=== PATIENT | male | born 1975 | race Caucasian/White ===

== ENCOUNTER 2019-05-07 13:21 | Observation (INO) | payer OTHER ==
[~2019-05-07] VITALS: Ht 182.9 cm; Wt 90.7 kg
[~2019-05-07 13:21] MED LIST: ALPRAZOLAM; NORCO 5-325 TA1 EACH PO
[2019-05-07 13:32] VITALS: BP 106/107
[2019-05-07] MEDS ORDERED: NOHOMEMEDICATIONS (14:05)
[2019-05-07 14:07] LABS: CALCIUM 9.3 mg/dL (8.5-10.1); POTASSIUM 3.6 mmol/L (3.5-5.1)
[2019-05-07 14:09] LABS: ABSOLUTE EOSINOPHILS 0.5 thou/uL (0.0-0.7); ABSOLUTE LYMPHOCYTES 1.7 thou/uL (0.8-5.3); ABSOLUTE MONOCYTES 0.5 thou/uL (0.0-1.2); ABSOLUTE NEUTROPHILS 4.2 thou/uL (1.6-8.1); BASOPHILS 0.7 %; EOSINOPHILS 6.8 %; HEMATOCRIT 49.9 % (42.0-52.0); HEMOGLOBIN 17.5 gm/dL (14.0-18.0); LYMPHOCYTES 24.8 %; MCH 30.5 pg (26.0-34.0); MCV 87.1 fL (80.0-100.0); MONOCYTES 7.4 %; MPV 8.6 fl. (7.2-11.1); NUCLEATED RBCS 0 /100WBC; PLATELET COUNT* 162 thou/uL (150-400); POLYS 60.3 %; RBC 5.72 mil/uL (4.50-6.00); RDW-CV 13.6 % (10.5-14.5); WBC 6.9 thou/uL (4.0-11.0)
[2019-05-07 14:11] LABS: ALBUMIN 3.9 g/dL (3.4-5.0); TOTAL BILIRUBIN 0.7 mg/dL (<0.1-1.0); TOTAL PROTEIN 7.5 g/dL (6.4-8.2)
[2019-05-07] MEDS ORDERED: NORCO 5-325 TA1 EAC1 PO (15:41)
[2019-05-07] MEDS ORDERED: ONDANSETRON HCL4 M2 PO (15:41)
[2019-05-07] MEDS ORDERED: IBU800 MG PO (15:41)
[2019-05-07] MEDS ORDERED: FLOMAX0.4 MG PO (15:41)
[2019-05-07 16:06] LABS: URINE BILIRUBIN NEGATIVE (Negative); URINE BLOOD 3+ (Negative); URINE CLARITY CLEAR; URINE COLOR YELLOW; URINE GLUCOSE-RANDOM 1+ (Negative); URINE KETONES NEGATIVE (Negative); URINE LEUKOCYTES-REFLEX NEGATIVE (Negative); URINE NITRITE-REFLEX NEGATIVE (Negative); URINE PROTEIN NEGATIVE (Negative); URINE UROBILINOGEN 0.2 E.U./dl (0.2-1.0)
[2019-05-07 16:15] LABS: SQUAMOUS 0-3 Few /LPF (0-3); URINE RBC >20 Many /HPF (0-2); URINE WBC-REFLEX 0-5 Rare /HPF (0-5)
[2019-05-07 16:16] LABS: CASTS None Seen /LPF (None Seen); CRYSTALS None Seen /LPF (None Seen); MUCUS >6 Heavy strn/LPF (None Seen)
[2019-05-07] MEDS ORDERED: CIPRO500 MG PO (16:19)
[2019-05-07 17:26] LABS: AMP/METHAMP POSITIVE (Negative); BARBITURATES Negative (Negative); BENZODIAZEPINES Negative (Negative); COCAINE Negative (Negative); METHADONE Negative (Negative); OPIATES Negative (Negative); PCP Negative (Negative); THC Negative (Negative)
[2019-05-07 18:28] VITALS: BP 120/76
[2019-05-07 18:47] VITALS: BP 159/101
[2019-05-07 20:00] VITALS: BP 119/76
[2019-05-08 07:49] VITALS: BP 137/59
[2019-05-08 08:36] LABS: CALCIUM 8.4 mg/dL (8.5-10.1); CREATININE 1.2 mg/dL (0.6-1.3); MAGNESIUM 1.8 mg/dL (1.8-2.4); POTASSIUM 4.2 mmol/L (3.5-5.1)
[2019-05-08 12:12] VITALS: BP 137/59
[2019-05-08] MEDS ORDERED: FLOMAX0.4 MG PO (15:05)
[2019-05-09 02:10] LABS: GLYCOHEMOGLOBIN (HGB A1C) 5.3 % (4.8-5.6)
== END 2019-05-08 15:48 | disposition home or self-care (01) ==
LOC: M.ERS 13:21 → M.TBA-ER 17:03 → M.ORTHSURG 17:03
PROVIDERS: Internal Medicine; Nurse Practitioner Family; ADMIT Internal Medicine
DX: N13.2 Hydronephrosis with renal and ureteral calculous obstruction (principal); R11.2 Nausea with vomiting, unspecified; E86.9 Volume depletion, unspecified; R73.9 Hyperglycemia, unspecified; R10.9 Unspecified abdominal pain; R31.29 Other microscopic hematuria; Z88.0 Allergy status to penicillin; Z79.899 Other long term (current) drug therapy

== ENCOUNTER 2019-12-16 22:04 | Emergency (ER) | payer OTHER ==
[~2019-12-16] VITALS: Ht 182.9 cm; Wt 88.5 kg
[~2019-12-16 22:04] MED LIST changes: +CIPRO500 MG PO; +FLOMAX0.4 MG PO; +IBU800 MG PO; +NOHOMEMEDICATIONS; +NORCO 5-325 TA1 EAC1 PO; +ONDANSETRON HCL4 M2 PO
[2019-12-16 22:47] LABS: ABSOLUTE EOSINOPHILS 0.3 thou/uL (0.0-0.7); ABSOLUTE LYMPHOCYTES 1.7 thou/uL (0.8-5.3); ABSOLUTE MONOCYTES 0.8 thou/uL (0.0-1.2); BASOPHILS 0.5 %; EOSINOPHILS 3.3 %; HEMATOCRIT 50.4 % (42.0-52.0); HEMOGLOBIN 17.7 gm/dL (14.0-18.0); LYMPHOCYTES 18.7 %; MCH 30.3 pg (26.0-34.0); MCHC 35.2 g/dL (28.0-37.0); MONOCYTES 9.6 %; NUCLEATED RBCS 0 /100WBC; PLATELET COUNT* 135 thou/uL (150-400); POLYS 67.9 %; RBC 5.86 mil/uL (4.50-6.00); RDW-CV 13.6 % (10.5-14.5); WBC 8.8 thou/uL (4.0-11.0)
[2019-12-16 22:52] LABS: CALCIUM 8.2 mg/dL (8.5-10.1); CREATININE 0.8 mg/dL (0.6-1.3); POTASSIUM 3.7 mmol/L (3.5-5.1)
[2019-12-16 22:57] LABS: ALBUMIN 3.5 g/dL (3.4-5.0); TOTAL BILIRUBIN 0.8 mg/dL (<0.1-1.0); TOTAL PROTEIN 6.9 g/dL (6.4-8.2)
[2019-12-17] MEDS ORDERED: ZOFRAN ODT4 MG PO (00:22)
[2019-12-17] MEDS ORDERED: CARAFATE 1 GM TA1 GM PO (00:22)
[2019-12-17] MEDS ORDERED: PROTONIX40 MG PO (00:22)
[2019-12-17] MEDS ORDERED: HYDROCODON-ACE1 EAC8 PO (00:22)
[2019-12-17 00:39] VITALS: BP 141/89
== END 2019-12-17 00:41 | disposition home or self-care (01) ==
LOC: M.ERS 22:04
PROVIDERS: Emergency Medicine
DX: K29.70 Gastritis, unspecified, without bleeding (principal); Z87.442 Personal history of urinary calculi; Z88.0 Allergy status to penicillin

== ENCOUNTER 2020-07-23 00:44 | Emergency (ER) | payer OTHER ==
[~2020-07-23] VITALS: Ht 182.9 cm; Wt 83.9 kg
[~2020-07-23 00:44] MED LIST changes: +CARAFATE 1 GM TA1 GM PO; +HYDROCODON-ACE1 EAC8 PO; +PROTONIX40 MG PO; +ZOFRAN ODT4 MG PO
[2020-07-23 01:37] LABS: URINE BILIRUBIN NEGATIVE (Negative); URINE BLOOD 1+ (Negative); URINE CLARITY CLEAR; URINE COLOR YELLOW; URINE GLUCOSE-RANDOM NEGATIVE (Negative); URINE KETONES NEGATIVE (Negative); URINE LEUKOCYTES-REFLEX TRACE (Negative); URINE NITRITE-REFLEX NEGATIVE (Negative); URINE PROTEIN NEGATIVE (Negative)
[2020-07-23] MEDS ORDERED: PYRIDIUM200 MG PO (01:49)
[2020-07-23] MEDS ORDERED: DOXYCYCLINE 10100 MG PO (01:49)
[2020-07-23] MEDS ORDERED: LORCET 5-325 M1 EACH PO (01:49)
[2020-07-23 02:07] LABS: CASTS None Seen /LPF (None Seen); SQUAMOUS NONE SEEN /LPF (0-3)
[2020-07-23 02:08] LABS: URINE WBC-REFLEX >25 Many /HPF (0-5)
[2020-07-23 02:09] LABS: URINE RBC 0-2 Rare /HPF (0-2)
[2020-07-23 02:10] LABS: AMORPHOUS URATES Many /LPF (None Seen)
[2020-07-23 02:18] VITALS: BP 130/92
== END 2020-07-23 02:19 | disposition home or self-care (01) ==
LOC: M.ERS 00:44
PROVIDERS: Emergency Medicine
DX: N39.0 Urinary tract infection, site not specified (principal); A64 Unspecified sexually transmitted disease; Z88.0 Allergy status to penicillin; Z87.442 Personal history of urinary calculi